=== PATIENT | female | born 1935 | race American Indian/Alaskan Native ===

== ENCOUNTER 2018-07-10 07:43 | Inpatient (IN) | payer MEDICARE ==
[2018-07-10 07:56] VITALS: BMI 27.4
[2018-07-10 08:25] LABS: BASO # 0.1 K/uL (0.0-0.2); BASO % 1.3 % (0.0-2.0); EOS # 0.1 K/uL (0.0-0.7); EOS % 2.5 % (0.0-4.0); LYMPH # 1.4 K/uL (1.0-4.3); LYMPH % 35.6 % (20.0-40.0); MEAN CORPUSCULAR HGB CONC 34.6 g/dL (33.0-37.0); MONO # 0.5 K/uL (0.0-0.8); MONO % 11.4 % (0.0-10.0); NEUT % 49.2 % (50.0-75.0); NRBC % 0.1 % (0.0-2.0); RBC 3.87 Mil/uL (3.80-5.20); RED CELL DISTRIBUTION WIDTH 14.3 % (11.5-14.5)
[2018-07-10 08:36] LABS: ALB/GLOB RATIO 1.4 (1.0-2.1); ALT/SGPT 32 U/L (9-52); AST/SGOT 40 U/L (14-36); BLOOD UREA NITROGEN 21 mg/dL (7-17); CALCIUM 9.4 mg/dl (8.6-10.4); GFR NON-AFRICAN AMERICAN 36
[2018-07-10 08:38] LABS: INR 1.1; PARTIAL THROMBOPLASTIN TIME 45.1 SECONDS (21-34); PROTHROMBIN TIME 12.4 SECONDS (9.7-12.2)
[2018-07-10 08:39] LABS: MEAN CELL VOLUME 89.6 fL (81.0-99.0)
[2018-07-10 09:09] LABS: B-TYPE NATRIURETIC PEPTIDE 7130 pg/mL (0-900); CK-MB 1.22 ng/mL (0.0-3.38)
--- NOTE | 2018-07-10 10:13 | RAD ---
HISTORY: SOB COMPARISON: Chest x-ray performed 10/30/15 TECHNIQUE: Chest, one view. FINDINGS: Examination limited by habitus and hypoinflation. LUNGS: Central vascular prominence. Mild venous congestion. Discoid atelectasis, left mid lung zone. Right infrahilar atelectasis or pneumonia. Please note that chest x-ray has limited sensitivity for the detection of pulmonary masses. PLEURA: No significant pleural effusion identified. No definite pneumothorax . CARDIOVASCULAR: Borderline cardiomegaly. Atherosclerotic calcifications of the aorta. OSSEOUS STRUCTURES: Degenerative changes. Acromioclavicular arthropathy. VISUALIZED UPPER ABDOMEN: Elevation of the right hemidiaphragm. OTHER FINDINGS: None. IMPRESSION: Central vascular prominence. Mild venous congestion. Discoid atelectasis, left mid lung zone. Right infrahilar atelectasis or pneumonia. Borderline cardiomegaly. Atherosclerotic calcifications of the aorta. Elevation of the right hemidiaphragm.
--- NOTE | 2018-07-10 10:43 | C.PDOC ---
History Of Present Illness 82 y/o female presents to ED complaining of SOB intermittently for the past 2 months, worse since this morning when she woke up. States SOB is associated with occasional left-sided and LUQ pain. She denies fever, cough, or palpitations. Patient has history of hypertension, CHF, and asthma. Time Seen by Provider: 07/10/18 07:45 Chief Complaint (Nursing): Shortness Of Breath History Per: Patient History/Exam Limitations: no limitations Onset/Duration Of Symptoms: Days Current Symptoms Are (Timing): Still Present Past Medical History Reviewed: Historical Data, Nursing Documentation, Vital Signs Vital Signs: Last Vital Signs Temp 97.5 F L 07/10/18 07:55 Pulse 73 07/10/18 09:51 Resp 15 07/10/18 09:51 BP 155/80 H 07/10/18 09:51 Pulse Ox 99 07/10/18 09:51 Primary Care Provider: Juan Roberson - Medical History PMH: CAD, CHF, Gastritis, HTN, Hypothyroidism Denies: Chronic Kidney Disease Surgical History: Coronary Stent - [facility] Procedures EXCISION OF STOMACH, ENDO, DIAGN (10/30/15) OTHER ENDOSCOPY OF SM INTEST (10/06/12) PACKED CELL TRANSFUSION (10/06/12) TRANSFUSE NONAUT RED BLOOD CELLS IN PERIPH VEIN, PERC (10/30/15) Family History: States: No Known Family Hx - Social History Hx Tobacco Use: No Hx Alcohol Use: No Hx Substance Use: No - Immunization History Hx Tetanus Toxoid Vaccination: (unk) Hx Influenza Vaccination: Yes Hx Pneumococcal Vaccination: Yes Review Of Systems Constitutional: Negative for: Fever, Chills Cardiovascular: Positive for: Chest Pain (left-sided). Negative for: Palpitations Respiratory: Positive for: Shortness of Breath. Negative for: Cough Gastrointestinal: Negative for: Nausea, Vomiting, Diarrhea Genitourinary: Negative for: Dysuria, Hematuria Musculoskeletal: Negative for: Back Pain Physical Exam - Physical Exam Appears: Non-toxic, No Acute Distress Skin: Warm, Dry Head: Normacephalic Eye(s): bilateral: Normal Inspection Oral Mucosa: Moist Neck: Supple Cardiovascular: Rhythm Regular, Murmur (loud systolic murmur 5/6) Respiratory: No Accessory Muscle Use, Rales (bases bilaterally), No Rhonchi, No Wheezing Gastrointestinal/Abdominal: Soft, No Tenderness Extremity: No Tenderness, No Deformity, Other (trace pitting edema of lower extremities) Extremity: Bilateral: Normal ROM Neurological/Psych: Oriented x3, Normal Speech ED Course And Treatment - Laboratory Results Result Diagrams: 07/10/18 08:21 07/10/18 08:21 Lab Results: PT 12.4 SECONDS (9.7-12.2) H 07/10/18 08:21 INR 1.1 07/10/18 08:21 APTT 45.1 SECONDS (21-34) H 07/10/18 08:21 Troponin I < 0.0120 ng/mL (0.00-0.120) 07/10/18 08:21 NT-Pro-B Natriuret Pep 7130 pg/mL (0-900) H 07/10/18 08:21 Total Bilirubin 0.7 mg/dL (0.2-1.3) 07/10/18 08:21 AST 40 U/L (14-36) H 07/10/18 08:21 ALT 32 U/L (9-52) 07/10/18 08:21 Alkaline Phosphatase 57 U/L (38-126) 07/10/18 08:21 Total Protein 6.9 g/dL (6.3-8.3) 07/10/18 08:21 Albumin 4.0 g/dL (3.5-5.0) 07/10/18 08:21 Globulin 2.8 gm/dL (2.2-3.9) 07/10/18 08:21 Albumin/Globulin Ratio 1.4 (1.0-2.1) 07/10/18 08:21 O2 Sat by Pulse Oximetry: 99 (RA) Pulse Ox Interpretation: Normal - Other Rad CXR X-Ray: Read By Radiologist Interpretation: FINDINGS: Examination limited by habitus and hypoinflation. LUNGS: Central vascular prominence. Mild venous congestion. Discoid atelectasis, left mid lung zone. Right infrahilar atelectasis or pneumonia. Please note that chest x-ray has limited sensitivity for the detection of pulmonary masses. PLEURA: No significant pleural effusion identified. No definite pneumothorax . CARDIOVASCULAR: Borderline cardiomegaly. Atherosclerotic calcifications of the aorta. OSSEOUS STRUCTURES: Degenerative changes. Acromioclavicular arthropathy. VISUALIZED UPPER ABDOMEN: Elevation of the right hemidiaphragm. OTHER FINDINGS: None. IMPRESSION: Central vascular prominence. Mild venous congestion. Discoid atelectasis, left mid lung zone. Right infrahilar atelectasis or pneumonia. Borderline cardiomegaly. Atherosclerotic calcifications of the aorta. Elevation of the right hemidiaphragm. Progress Note: EKG, labs, and chest XR ordered. Patient given lasix. Disposition - Disposition Forms: [facility] (Kinyarwanda) - Scribe Statement The provider has reviewed the documentation as recorded by the Connor Carter Provider Attestation: All medical record entries made by the Yusefibdada were at my direction and personally dictated by me. I have reviewed the chart and agree that the record accurately reflects my personal performance of the history, physical exam, medical decision making, and the department course for this patient. I have also personally directed, reviewed, and agree with the discharge instructions and disposition.
[2018-07-10] MEDS ORDERED: Vancomycin 1 GM 1 GM/250 ML BAG IV STA (11:17)
[2018-07-10] MEDS ORDERED: Piperacillin/Tazobact 3.375 gm 100 ML IV STA (11:17)
[2018-07-10] MEDS ORDERED: Piperacillin/Tazobact 3.375 gm 100 ML IVPB ONE (11:56)
[2018-07-10] MEDS ORDERED: Albuterol 0.083% Inhal Sol (2.5 mg/3 mL) UD IH PRN (15:16)
--- NOTE | 2018-07-10 15:22 | CP.PCM.HP ---
Past Patient History - Past Medical History & Family History Past Medical History?: Yes - Past Social History Smoking Status: Never Smoked - CARDIAC Hx Congestive Heart Failure: Yes Hx Hypertension: Yes - PULMONARY Hx Respiratory Disorders: No - NEUROLOGICAL Hx Neurological Disorder: No - HEENT Hx HEENT Problems: No - RENAL Hx Chronic Kidney Disease: No - ENDOCRINE/METABOLIC Hx Hypothyroidism: Yes - HEMATOLOGICAL/ONCOLOGICAL Hx Blood Disorders: Yes Hx Blood Transfusions: Yes Other/Comment: Hepatitis (type unknown) - INTEGUMENTARY Hx Dermatological Problems: No - MUSCULOSKELETAL/RHEUMATOLOGICAL Hx Musculoskeletal Disorders: No Hx Falls: No - GASTROINTESTINAL Hx Gastritis: Yes - GENITOURINARY/GYNECOLOGICAL Hx Genitourinary Disorders: No - PSYCHIATRIC Hx Substance Use: No - SURGICAL HISTORY Hx Coronary Stent: Yes - ANESTHESIA Hx Anesthesia: Yes Hx Anesthesia Reactions: No Hx Malignant Hyperthermia: No Meds Allergies/Adverse Reactions: Allergies Allergy/AdvReac Type Severity Reaction Status Date / Time No Known Allergies Allergy Verified 07/10/18 07:50 Results - Vital Signs Recent Vital Signs: Last Vital Signs Temp 98.1 F 07/10/18 11:56 Pulse 67 07/10/18 11:56 Resp 13 07/10/18 11:56 BP 159/85 H 07/10/18 11:56 Pulse Ox 100 07/10/18 11:56 - Labs Result Diagrams: 07/10/18 08:21 07/10/18 08:21 Labs: Laboratory Results - last 24 hr 07/10/18 07/10/18 07/10/18 08:21 08:21 08:21 WBC 4.0 L RBC 3.87 Hgb 12.0 Hct 34.7 MCV 89.6 D MCH 31.0 MCHC 34.6 RDW 14.3 Plt Count 152 MPV 9.0 Neut % (Auto) 49.2 L Lymph % (Auto) 35.6 [place] % (Auto) 11.4 H Eos % (Auto) 2.5 Baso % (Auto) 1.3 Neut # (Auto) 2.0 Lymph # (Auto) 1.4 [place] # (Auto) 0.5 Eos # (Auto) 0.1 Baso # (Auto) 0.1 PT 12.4 H INR 1.1 APTT 45.1 H Sodium 139 Potassium 3.8 Chloride 97 L Carbon Dioxide 35 H Anion Gap 12 BUN 21 H Creatinine 1.4 H Est GFR ( Amer) 43 Est GFR (Non-Af Amer) 36 Random Glucose 112 H Calcium 9.4 Total Bilirubin 0.7 AST 40 H ALT 32 Alkaline Phosphatase 57 Total Creatine Kinase 65 CK-MB (Mass) 1.22 Troponin I < 0.0120 NT-Pro-B Natriuret Pep 7130 H Total Protein 6.9 Albumin 4.0 Globulin 2.8 Albumin/Globulin Ratio 1.4
[2018-07-11] MEDS: Levothyroxine 112 MCG TAB PO SCH (06:43)
[2018-07-11] MEDS: Potassium Chloride 10 mEq ER Tab PO SCH (09:11)
[2018-07-11] MEDS ORDERED: Pantoprazole 40 mg EC Tab PO SCH (10:00)
[2018-07-11 13:37] LABS: SQUAMOUS EPITHIAL 1 /hpf (0-5); URINE BILIRUBIN NEGATIVE (NEGATIVE); URINE BLOOD NEGATIVE (NEGATIVE); URINE CLARITY Clear (Clear); URINE COLOR Straw (YELLOW); URINE GLUCOSE (UA) NORMAL (Normal); URINE LEUKOCYTE ESTERASE 1+ Leu/uL (Negative); URINE PROTEIN NEGATIVE (NEGATIVE); URINE UROBILINOGEN NORMAL mg/dL (0.2-1.0)
--- NOTE | 2018-07-11 15:22 | CP.PCM.PN ---
Objective - Vital Signs/Intake and Output Vital Signs (last 24 hours): Temp Pulse Resp BP Pulse Ox 98.6 F 65 20 136/73 96 07/11/18 07:00 07/11/18 08:11 07/11/18 07:00 07/11/18 09:12 07/11/18 07:00 - Medications Medications: Current Medications Albuterol Sulfate (Albuterol 0.083% Inhal Freda (2.5 Mg/3 Ml) Ud) 50 mg IH Q6H PRN PRN Reason: Wheezing Amlodipine Besylate (Norvasc) 10 mg PO DAILY [facility] Last Admin: 07/11/18 09:12 Dose: 10 mg Aspirin (Aspirin Chewable) 81 mg PO DAILY [facility] Last Admin: 07/11/18 09:12 Dose: 81 mg Carvedilol (Coreg) 6.25 mg PO DAILY [facility] Last Admin: 07/11/18 09:11 Dose: 6.25 mg Clopidogrel Bisulfate (Plavix) 75 mg PO DAILY [facility] Last Admin: 07/11/18 09:12 Dose: 75 mg Famotidine (Pepcid) 20 mg PO DAILY [facility] Last Admin: 07/11/18 09:12 Dose: 20 mg Fenofibrate (Tricor) 48 mg PO DAILY [facility] Last Admin: 07/11/18 09:12 Dose: 48 mg Furosemide (Lasix) 40 mg IVP Q12 [facility] Last Admin: 07/11/18 09:12 Dose: 40 mg Heparin Sodium (Porcine) (Heparin) 5,000 units SC Q8 [facility] Last Admin: 07/11/18 14:40 Dose: 5,000 units Levothyroxine Sodium (Synthroid) 112 mcg PO 0630 [facility] Last Admin: 07/11/18 06:43 Dose: 112 mcg Lisinopril (Zestril) 5 mg PO DAILY [facility] Last Admin: 07/11/18 09:12 Dose: 5 mg Potassium Chloride (Klor-Con 10) 10 meq PO DAILY [facility] Last Admin: 07/11/18 09:11 Dose: 10 meq - Labs Labs: 07/10/18 08:21 07/10/18 08:21 PT 12.4 SECONDS (9.7-12.2) H 07/10/18 08:21 INR 1.1 07/10/18 08:21 APTT 45.1 SECONDS (21-34) H 07/10/18 08:21
--- NOTE | 2018-07-11 16:05 | CP.PCM.CON ---
History of Present Illness - History of Present Illness History of Present Illness: Nephrology Consultation Note: Assessment: Stable Acute Kidney Injury (N17.9) versus underlying CKD 3 CHF exacerbation metabolic alkalosis ? due to chronic diuretics CAD hyperlipidmeia hypothyroidism s/p thyroidectomy Plan No acute need for renal replacement therapy at this time. Hypertension control with meds as ordered. Maintain hemodynamics stable. Avoid hypotension. continue with dagmar inh Monitor Input/Output, daily weights and renal function with basic metabolic panel on diuretics for chf. supplement lytes as needed Check urine analysis, spot protein/creatinine, albumin/creatinine ratio, renal sonogram Dose meds/antibiotics for reduced GFR. Avoid fleets enema/magnesium based laxatives. Avoid nephrotoxins/NSAIDs/ iodinated contrast (unless needed emergently) Glycemic control Further work up/management as per primary team Thanks for allowing me to participate in care of your patient. Dr Olinda Duff will follow patient with you from tomorrow. Please call if any Qs Dr Sachin Perez Office: [phone] Chief Complaint; SOB but better Reason for consult: Acute Kidney Injury HPI: Pt is a 82 F with hx of hypertension (years) CHF CAD hyperlipidmeia hypothyroidism s/p thyroidectomy for cancer in 1970s presented with complaints of SOB and CHF exacerbation and found to have ELZA hence renal consulted Denies OTC/herbal meds or NSAIDs No recent iodinated contrast exposure. No obvious episodes of low BP she feels better now ROS: leg swelling better Cardiovascular: No chest pain. Pulmonary: No shortness of breath at present Gastrointestinal: denies abdominal pain No nausea. No vomiting. Genitourinary: No pain while urinating. Denies blood in urine. All other negative except as mentioned in HPI. Physical Examination: General Appearance: Comfortable, in no acute respiratory distress, co-operative . Vitals reviewed and noted as below Head; Atraumatic, normocephalic ENT: no ulcers no thrush. Tongue is midline. Oropharynx: no rash or ulcers. EYES: Pupils are equal, round and reactive to light accommodation. Eye muscles and extraocular movement intact. Sclera is anicteric. Neck; supple no lymphadenopathy, no thyromegaly or bruit Lungs: Normal respiratory rate/effort. Breath sounds bilateral equal and occasional basal crackles Heart: Normal rate. s1s2 normal. No rub or gallop. Extremities: no edema. No varicose veins Neurological: Patient is alert, awake and oriented. No focal deficit. Strength bilateral appropriate and equal Skin: Warm and dry. Normal turgor. No rash. Palpitation: Normal elasticity for age Abdomen: Abdomen is soft. Bowel sounds +. There is no abdominal tenderness, no guarding/rigidity no organomegaly Psych: normal insight and normal affect/mood MSK: no joint tenderness or swelling. Digits and nails normal, no deformity : kidney or bladder not palpable Labs/imaging reviewed. Past medical history, past surgical history, family history, social history, allergy reviewed and noted as below Family hx: no hx of CKD. Rest non-contributory Past Patient History - Past Medical History & Family History Past Medical History?: Yes - Past Social History Smoking Status: Never Smoked - CARDIAC Hx Congestive Heart Failure: Yes Hx Hypertension: Yes - PULMONARY Hx Respiratory Disorders: No - NEUROLOGICAL Hx Neurological Disorder: No - HEENT Hx HEENT Problems: No - RENAL Hx Chronic Kidney Disease: No - ENDOCRINE/METABOLIC Hx Hypothyroidism: Yes - HEMATOLOGICAL/ONCOLOGICAL Hx Blood Disorders: Yes Hx Blood Transfusions: Yes Other/Comment: Hepatitis (type unknown) - INTEGUMENTARY Hx Dermatological Problems: No - MUSCULOSKELETAL/RHEUMATOLOGICAL Hx Musculoskeletal Disorders: No Hx Falls: No - GASTROINTESTINAL Hx Gastritis: Yes - GENITOURINARY/GYNECOLOGICAL Hx Genitourinary Disorders: No - PSYCHIATRIC Hx Substance Use: No - SURGICAL HISTORY Hx Coronary Stent: Yes - ANESTHESIA Hx Anesthesia: Yes Hx Anesthesia Reactions: No Hx Malignant Hyperthermia: No Meds Allergies/Adverse Reactions: Allergies Allergy/AdvReac Type Severity Reaction Status Date / Time No Known Allergies Allergy Verified 07/10/18 07:50 - Medications Medications: Current Medications Albuterol Sulfate (Albuterol 0.083% Inhal Freda (2.5 Mg/3 Ml) Ud) 50 mg IH Q6H PRN PRN Reason: Wheezing Amlodipine Besylate (Norvasc) 10 mg PO DAILY [facility] Last Admin: 07/11/18 09:12 Dose: 10 mg Aspirin (Aspirin Chewable) 81 mg PO DAILY [facility] Last Admin: 07/11/18 09:12 Dose: 81 mg Carvedilol (Coreg) 6.25 mg PO DAILY [facility] Last Admin: 07/11/18 09:11 Dose: 6.25 mg Clopidogrel Bisulfate (Plavix) 75 mg PO DAILY [facility] Last Admin: 07/11/18 09:12 Dose: 75 mg Famotidine (Pepcid) 20 mg PO DAILY [facility] Last Admin: 07/11/18 09:12 Dose: 20 mg Fenofibrate (Tricor) 48 mg PO DAILY [facility] Last Admin: 07/11/18 09:12 Dose: 48 mg Furosemide (Lasix) 40 mg IVP Q12 [facility] Last Admin: 07/11/18 09:12 Dose: 40 mg Heparin Sodium (Porcine) (Heparin) 5,000 units SC Q8 [facility] Last Admin: 07/11/18 14:40 Dose: 5,000 units Levothyroxine Sodium (Synthroid) 112 mcg PO 0630 [facility] Last Admin: 07/11/18 06:43 Dose: 112 mcg Lisinopril (Zestril) 5 mg PO DAILY [facility] Last Admin: 07/11/18 09:12 Dose: 5 mg Potassium Chloride (Klor-Con 10) 10 meq PO DAILY [facility] Last Admin: 07/11/18 09:11 Dose: 10 meq Results - Vital Signs Recent Vital Signs: Last Vital Signs Temp 98.6 F 07/11/18 07:00 Pulse 65 07/11/18 08:11 Resp 20 07/11/18 07:00 BP 136/73 07/11/18 09:12 Pulse Ox 96 07/11/18 07:00 - Labs Result Diagrams: 07/10/18 08:21 07/10/18 08:21 Labs: Laboratory Results - last 24 hr 07/11/18 07/11/18 13:20 13:27 Urine Color Straw Urine Clarity Clear Urine pH 7.0 Ur Specific [place] 1.006 Urine Protein Negative Urine Glucose (UA) Normal Urine Ketones Negative Urine Blood Negative Urine Nitrate Negative Urine Bilirubin Negative Urine Urobilinogen Normal Ur Leukocyte Esterase 1+ H Urine WBC (Auto) 3 Urine RBC (Auto) < 1 Ur Squamous Epith Cells 1 U Random Total Protein 12.0
--- NOTE | 2018-07-11 16:57 | US ---
Date of service: 07/11/2018 PROCEDURE: Ultrasound of the Kidneys HISTORY: ELZA COMPARISON: None available. TECHNIQUE: Sonogram of the kidneys. FINDINGS: RIGHT KIDNEY: Measures: 10.2 x 4.7 x 5.3 cm. No obstructing calculus or hydronephrosis identified. 4.6 x 3.2 x 4.3 cm and 3.2 x 5.6 x 3.3 cm cyst. LEFT KIDNEY: Measures: 9.4 x 4.8 x 4.5 cm. No obstructing calculus or hydronephrosis identified. 2.1 x 2.1 x 1.6 cm cyst. OTHER FINDINGS: None. IMPRESSION: Bilateral large renal cysts as above.
[2018-07-12] MEDS: Levothyroxine 112 MCG TAB PO SCH (05:54)
[2018-07-12 07:29] LABS: HEMOGLOBIN 12.9 g/dL (11.0-16.0); MEAN CELL VOLUME 89.1 fL (81.0-99.0); MEAN CORPUSCULAR HEMOGLOBIN 30.1 pg (27.0-31.0); MEAN CORPUSCULAR HGB CONC 33.8 g/dL (33.0-37.0); MEAN PLATELET VOLUME 9.1 fL (7.2-11.7); RBC 4.28 Mil/uL (3.80-5.20); RED CELL DISTRIBUTION WIDTH 14.3 % (11.5-14.5); WHITE BLOOD COUNT 4.3 K/uL (4.8-10.8)
[2018-07-12 07:38] VITALS: RESP 20
[2018-07-12 07:43] LABS: BLOOD UREA NITROGEN 22 mg/dL (7-17); CALCIUM 8.3 mg/dl (8.6-10.4); GFR NON-AFRICAN AMERICAN 53
[2018-07-12] MEDS: Potassium Chloride 10 mEq ER Tab PO SCH (09:44)
--- NOTE | 2018-07-12 14:15 | CP.PCM.PN ---
Subjective - Date & Time of Evaluation Date of Evaluation: 07/12/18 Time of Evaluation: 14:14 - Subjective Subjective: Nephrology Consultation Note: Assessment: Stable Acute Kidney Injury (N17.9) improved CHF exacerbation metabolic alkalosis ? due to chronic diuretics CAD hyperlipidmeia hypothyroidism s/p thyroidectomy renal cyst Plan No acute need for renal replacement therapy at this time. Hypertension control with meds as ordered. Maintain hemodynamics stable. Avoid hypotension. continue with dagmar inh Monitor Input/Output, daily weights and renal function with basic metabolic panel on diuretics for chf. consider switch to oral supplement lytes as needed Check urine analysis, spot protein/creatinine, albumin/creatinine ratio, renal sonogram Dose meds/antibiotics for improved GFR. Glycemic control Further work up/management as per primary team Thanks for allowing me to participate in care of your patient. will follow patient with you. Please call if any Qs. had d/w team Dr Sachin Perez Office: [phone] Chief Complaint; SOB but better Reason for consult: Acute Kidney Injury HPI: Pt is a 82 F with hx of hypertension (years) CHF CAD hyperlipidmeia hypothyroidism s/p thyroidectomy for cancer in 1970s presented with complaints of SOB and CHF exacerbation and found to have ELZA hence renal consulted Denies OTC/herbal meds or NSAIDs No recent iodinated contrast exposure. No obvious episodes of low BP she feels better now ROS: leg swelling better Cardiovascular: No chest pain. Pulmonary: No shortness of breath at present Gastrointestinal: denies abdominal pain No nausea. No vomiting. Genitourinary: No pain while urinating. Denies blood in urine. All other negative except as mentioned in HPI. Physical Examination: General Appearance: Comfortable, in no acute respiratory distress, co-operative . Vitals reviewed and noted as below Head; Atraumatic, normocephalic ENT: no ulcers no thrush. Tongue is midline. Oropharynx: no rash or ulcers. EYES: Pupils are equal, round and reactive to light accommodation. Eye muscles and extraocular movement intact. Sclera is anicteric. Neck; supple no lymphadenopathy, no thyromegaly or bruit Lungs: Normal respiratory rate/effort. Breath sounds bilateral equal and clearer Heart: Normal rate. s1s2 normal. No rub or gallop. Extremities: no edema. No varicose veins Neurological: Patient is alert, awake and oriented. No focal deficit. Strength bilateral appropriate and equal Skin: Warm and dry. Normal turgor. No rash. Palpitation: Normal elasticity for age Abdomen: Abdomen is soft. Bowel sounds +. There is no abdominal tenderness, no guarding/rigidity no organomegaly Psych: normal insight and normal affect/mood MSK: no joint tenderness or swelling. Digits and nails normal, no deformity : kidney or bladder not palpable Labs/imaging reviewed. Past medical history, past surgical history, family history, social history, allergy reviewed and noted as below Family hx: no hx of CKD. Rest non-contributory Objective - Vital Signs/Intake and Output Vital Signs (last 24 hours): Temp Pulse Resp BP Pulse Ox 98.2 F 72 20 114/63 97 07/12/18 07:10 07/12/18 12:03 07/12/18 07:10 07/12/18 09:44 07/12/18 07:10 Intake and Output: 07/12/18 07/12/18 06:59 18:59 Intake Total 120 Output Total 1000 Balance -880 - Medications Medications: Current Medications Albuterol Sulfate (Albuterol 0.083% Inhal Freda (2.5 Mg/3 Ml) Ud) 50 mg IH Q6H PRN PRN Reason: Wheezing Amlodipine Besylate (Norvasc) 10 mg PO DAILY [facility] Last Admin: 07/12/18 09:44 Dose: 10 mg Aspirin (Aspirin Chewable) 81 mg PO DAILY [facility] Last Admin: 07/12/18 09:44 Dose: 81 mg Carvedilol (Coreg) 6.25 mg PO DAILY [facility] Last Admin: 07/12/18 09:44 Dose: 6.25 mg Clopidogrel Bisulfate (Plavix) 75 mg PO DAILY [facility] Last Admin: 07/12/18 09:44 Dose: 75 mg Famotidine (Pepcid) 20 mg PO DAILY [facility] Last Admin: 07/12/18 09:44 Dose: 20 mg Fenofibrate (Tricor) 48 mg PO DAILY [facility] Last Admin: 07/12/18 09:43 Dose: 48 mg Furosemide (Lasix) 40 mg IVP Q12 [facility] Last Admin: 07/12/18 09:44 Dose: 40 mg Heparin Sodium (Porcine) (Heparin) 5,000 units SC Q8 [facility] Last Admin: 07/12/18 13:57 Dose: 5,000 units Potassium Chloride (Potassium Chloride 20 Meq/100 Ml) 20 meq in 100 mls @ 50 mls/hr IVPB Q2 [facility] Stop: 07/12/18 15:59 Last Admin: 07/12/18 12:45 Dose: 50 mls/hr Levothyroxine Sodium (Synthroid) 112 mcg PO 0630 [facility] Last Admin: 07/12/18 05:54 Dose: 112 mcg Lisinopril (Zestril) 5 mg PO DAILY [facility] Last Admin: 07/12/18 09:43 Dose: 5 mg Potassium Chloride (Klor-Con 10) 10 meq PO DAILY [facility] Last Admin: 07/12/18 09:44 Dose: 10 meq - Labs Labs: 07/12/18 07:23 07/12/18 07:23 PT 12.4 SECONDS (9.7-12.2) H 07/10/18 08:21 INR 1.1 07/10/18 08:21 APTT 45.1 SECONDS (21-34) H 07/10/18 08:21
--- NOTE | 2018-07-12 14:53 | CARD ---
APPROVED REPORT Date of service: 07/12/2018 EXAM: Two-dimensional and M-mode echocardiogram with Doppler and color Doppler. Other Information Quality : GoodRhythm : INDICATION Dyspnea 2D DIMENSIONS IVSd1.0 (0.7-1.1cm)LVDd6.1 (3.9-5.9cm) PWd0.8 (0.7-1.1cm)LA Prkdeq799 (18-58mL) LVDs4.5 (2.5-4.0cm)FS (%) 26.1 % LVEF (%)50.3 (>50%)LVEF (Quiroz's)54.16 % IVC0.00 cm M-Mode DIMENSIONS RVDd1.85 (2.1-3.2cm)Left Atrium (MM)4.91 (2.5-4.0cm) IVSd1.01 (0.7-1.1cm)Aortic Root3.15 (2.2-3.7cm) LVDd5.43 (4.0-5.6cm)Aortic Cusp Exc.1.95 (1.5-2.0cm) PWd0.94 (0.7-1.1cm)FS (%) 23 % LVDs4.20 (2.0-3.8cm)LVEF (%)45 (>50%) Aortic Valve AI P 1/2 [id number] Mitral Valve MV E Kkadfzua88.2cm/sMV A Gegkdmle47.0cm/sE/A ratio1.0 MXLE222.71 cm/s TDI Lateral E' Peak V6.80cm/sMedial E' Peak V3.58cm/sE/Lateral E'11.9 E/Medial E'22.7 Tricuspid Valve TR Peak Eyeqmqel193jz/sTR Peak Gr.[id number] LEFT VENTRICLE The Left Ventricle is moderately dilated. There is normal left ventricular wall thickness. The Ejection Fraction is 45-50%. The left atrial pressure is mildly elevated. Transmitral Doppler flow pattern is Grade II-pseudonormal filling dynamics. markedly increased la volume index of 95 mm/m2. RIGHT VENTRICLE The right ventricle is normal size. The right ventricular systolic function is normal. ATRIA The left atrium is severely dilated. The right atrium size is normal. The interatrial septum is intact with no evidence for an atrial septal defect.buldging of atrial septum to rt suggestive of increased la pressures. AORTIC VALVE The aortic valve is moderately sclerotic. The aortic valve is trileaflet. There is mild aortic regurgitation. MITRAL VALVE The mitral valve is thickened but opens well. Mitral annular calcification is moderate. Mitral regurgitation is moderate to severe. TRICUSPID VALVE The tricuspid valve is normal in structure. There is moderate tricuspid regurgitation. Right ventricular systolic pressure is estimated at 50 mmHg. There is moderate pulmonary hypertension. PULMONIC VALVE The pulmonary valve is normal in structure. There is trace pulmonic valvular regurgitation. GREAT VESSELS The aortic root is normal in size. The IVC is normal in size and collapses >50% with inspiration. PERICARDIAL EFFUSION There is no pericardial effusion. <Conclusion> The Left Ventricle is moderately dilated. The Ejection Fraction is 45-50%. The left atrial pressure is mildly elevated. Transmitral Doppler flow pattern is Grade II-pseudonormal filling dynamics. markedly increased la volume index of 95 mm/m2. The left atrium is severely dilated. The interatrial septum is intact with no evidence for an atrial septal defect.buldging of atrial septum to rt suggestive of increased la pressures. There is mild aortic regurgitation. Mitral regurgitation is moderate to severe. There is moderate tricuspid regurgitation. Right ventricular systolic pressure is estimated at 50 mmHg. There is moderate pulmonary hypertension. The aortic root is normal in size. The IVC is normal in size and collapses >50% with inspiration. There is no pericardial effusion.
--- NOTE | 2018-07-12 19:08 | CP.PCM.PN ---
Subjective - Date & Time of Evaluation Date of Evaluation: 07/12/18 Time of Evaluation: 19:08 Objective - Vital Signs/Intake and Output Vital Signs (last 24 hours): Temp Pulse Resp BP Pulse Ox 97.7 F 76 20 127/81 95 07/12/18 16:51 07/12/18 16:51 07/12/18 16:51 07/12/18 16:51 07/12/18 16:51 - Medications Medications: Current Medications Albuterol Sulfate (Albuterol 0.083% Inhal Freda (2.5 Mg/3 Ml) Ud) 50 mg IH Q6H PRN PRN Reason: Wheezing Amlodipine Besylate (Norvasc) 10 mg PO DAILY [facility] Last Admin: 07/12/18 09:44 Dose: 10 mg Aspirin (Aspirin Chewable) 81 mg PO DAILY [facility] Last Admin: 07/12/18 09:44 Dose: 81 mg Carvedilol (Coreg) 6.25 mg PO DAILY [facility] Last Admin: 07/12/18 09:44 Dose: 6.25 mg Clopidogrel Bisulfate (Plavix) 75 mg PO DAILY [facility] Last Admin: 07/12/18 09:44 Dose: 75 mg Famotidine (Pepcid) 20 mg PO DAILY [facility] Last Admin: 07/12/18 09:44 Dose: 20 mg Fenofibrate (Tricor) 48 mg PO DAILY [facility] Last Admin: 07/12/18 09:43 Dose: 48 mg Furosemide (Lasix) 40 mg IVP Q12 [facility] Last Admin: 07/12/18 09:44 Dose: 40 mg Heparin Sodium (Porcine) (Heparin) 5,000 units SC Q8 [facility] Last Admin: 07/12/18 13:57 Dose: 5,000 units Levothyroxine Sodium (Synthroid) 112 mcg PO 0630 [facility] Last Admin: 07/12/18 05:54 Dose: 112 mcg Lisinopril (Zestril) 5 mg PO DAILY [facility] Last Admin: 07/12/18 09:43 Dose: 5 mg Potassium Chloride (Klor-Con 10) 10 meq PO DAILY [facility] Last Admin: 07/12/18 09:44 Dose: 10 meq - Labs Labs: 07/12/18 07:23 07/12/18 07:23 PT 12.4 SECONDS (9.7-12.2) H 07/10/18 08:21 INR 1.1 07/10/18 08:21 APTT 45.1 SECONDS (21-34) H 07/10/18 08:21
--- NOTE | 2018-07-13 00:16 | CP.PCM.CON ---
History of Present Illness - History of Present Illness History of Present Illness: Patient seen and evaluated Admitted for dyspnea and anemia Past Patient History - Past Medical History & Family History Past Medical History?: Yes - Past Social History Smoking Status: Never Smoked - CARDIAC Hx Congestive Heart Failure: Yes Hx Hypertension: Yes - PULMONARY Hx Respiratory Disorders: No - NEUROLOGICAL Hx Neurological Disorder: No - HEENT Hx HEENT Problems: No - RENAL Hx Chronic Kidney Disease: No - ENDOCRINE/METABOLIC Hx Hypothyroidism: Yes - HEMATOLOGICAL/ONCOLOGICAL Hx Blood Disorders: Yes Hx Blood Transfusions: Yes Other/Comment: Hepatitis (type unknown) - INTEGUMENTARY Hx Dermatological Problems: No - MUSCULOSKELETAL/RHEUMATOLOGICAL Hx Musculoskeletal Disorders: No Hx Falls: No - GASTROINTESTINAL Hx Gastritis: Yes - GENITOURINARY/GYNECOLOGICAL Hx Genitourinary Disorders: No - PSYCHIATRIC Hx Substance Use: No - SURGICAL HISTORY Hx Coronary Stent: Yes - ANESTHESIA Hx Anesthesia: Yes Hx Anesthesia Reactions: No Hx Malignant Hyperthermia: No Has any member of the family had a problem w/ anesthesia?: No Meds Allergies/Adverse Reactions: Allergies Allergy/AdvReac Type Severity Reaction Status Date / Time No Known Allergies Allergy Verified 07/10/18 07:50 - Medications Medications: Current Medications Albuterol Sulfate (Albuterol 0.083% Inhal Freda (2.5 Mg/3 Ml) Ud) 50 mg IH Q6H PRN PRN Reason: Wheezing Amlodipine Besylate (Norvasc) 10 mg PO DAILY [facility] Last Admin: 07/12/18 09:44 Dose: 10 mg Aspirin (Aspirin Chewable) 81 mg PO DAILY [facility] Last Admin: 07/12/18 09:44 Dose: 81 mg Carvedilol (Coreg) 6.25 mg PO DAILY [facility] Last Admin: 07/12/18 09:44 Dose: 6.25 mg Clopidogrel Bisulfate (Plavix) 75 mg PO DAILY [facility] Last Admin: 07/12/18 09:44 Dose: 75 mg Famotidine (Pepcid) 20 mg PO DAILY [facility] Last Admin: 07/12/18 09:44 Dose: 20 mg Fenofibrate (Tricor) 48 mg PO DAILY [facility] Last Admin: 07/12/18 09:43 Dose: 48 mg Furosemide (Lasix) 40 mg IVP Q12 [facility] Last Admin: 07/12/18 21:56 Dose: 40 mg Heparin Sodium (Porcine) (Heparin) 5,000 units SC Q8 [facility] Last Admin: 07/12/18 21:56 Dose: 5,000 units Levothyroxine Sodium (Synthroid) 112 mcg PO 0630 [facility] Last Admin: 07/12/18 05:54 Dose: 112 mcg Lisinopril (Zestril) 5 mg PO DAILY [facility] Last Admin: 07/12/18 09:43 Dose: 5 mg Potassium Chloride (Klor-Con 10) 10 meq PO DAILY [facility] Last Admin: 07/12/18 09:44 Dose: 10 meq Results - Vital Signs Recent Vital Signs: Last Vital Signs Temp 97.7 F 07/12/18 16:51 Pulse 76 07/12/18 16:51 Resp 20 07/12/18 16:51 BP 135/74 07/12/18 21:56 Pulse Ox 95 07/12/18 16:51 - Labs Result Diagrams: 07/12/18 07:23 07/12/18 07:23 Labs: Laboratory Results - last 24 hr 07/12/18 07/12/18 07:23 07:23 WBC 4.3 L RBC 4.28 Hgb 12.9 Hct 38.1 MCV 89.1 MCH 30.1 MCHC 33.8 RDW 14.3 Plt Count 150 MPV 9.1 Sodium 136 Potassium 2.9 L Chloride 93 L Carbon Dioxide 33 H Anion Gap 14 BUN 22 H Creatinine 1.0 Est GFR ( Amer) > 60 Est GFR (Non-Af Amer) 53 Random Glucose 100 Calcium 8.3 L
[2018-07-13 01:21] LABS: CALCIUM 9.1 mg/dl (8.6-10.4)
[2018-07-13] MEDS: Levothyroxine 112 MCG TAB PO SCH (06:02)
[2018-07-13 08:34] VITALS: PULSE 73; TEMP 98.2; O2SAT 95
[2018-07-13] MEDS: Potassium Chloride 10 mEq ER Tab PO SCH (09:44)
[2018-07-13 09:45] VITALS: BP 125/81
--- NOTE | 2018-07-13 11:39 | CP.PCM.PN ---
Subjective - Date & Time of Evaluation Date of Evaluation: 07/13/18 Time of Evaluation: 11:37 - Subjective Subjective: Nephrology Consultation Note: Assessment: Stable Acute Kidney Injury (N17.9) improved underlying CKD 3 CHF exacerbation metabolic alkalosis ? due to chronic diuretics CAD hyperlipidmeia hypothyroidism s/p thyroidectomy renal cyst Plan No acute need for renal replacement therapy at this time. Hypertension control with meds as ordered. Maintain hemodynamics stable. Avoid hypotension. continue with dagmar inh Monitor Input/Output, daily weights and renal function with basic metabolic panel on diuretics for chf. consider switch to oral supplement lytes as needed cardiology following Check urine analysis, spot protein/creatinine, albumin/creatinine ratio, renal sonogram Dose meds/antibiotics for reduced GFR. Glycemic control Further work up/management as per primary team Thanks for allowing me to participate in care of your patient. will follow patient with you. Please call if any Qs. had d/w team Dr Sachin Perez Office: [phone] Chief Complaint; SOB but better Reason for consult: Acute Kidney Injury HPI: Pt is a 82 F with hx of hypertension (years) CHF CAD hyperlipidmeia hypothyroidism s/p thyroidectomy for cancer in 1970s presented with complaints of SOB and CHF exacerbation and found to have ELZA hence renal consulted Denies OTC/herbal meds or NSAIDs No recent iodinated contrast exposure. No obvious episodes of low BP she feels better now ROS: pt feels better. no complaints at this time Cardiovascular: No chest pain. Pulmonary: No shortness of breath at present Gastrointestinal: denies abdominal pain No nausea. No vomiting. Genitourinary: No pain while urinating. Denies blood in urine. All other negative except as mentioned in HPI. Physical Examination: General Appearance: Comfortable, in no acute respiratory distress, co-operative . Vitals reviewed and noted as below Head; Atraumatic, normocephalic ENT: no ulcers no thrush. Tongue is midline. Oropharynx: no rash or ulcers. EYES: Pupils are equal, round and reactive to light accommodation. Eye muscles and extraocular movement intact. Sclera is anicteric. Neck; supple no lymphadenopathy, no thyromegaly or bruit Lungs: Normal respiratory rate/effort. Breath sounds bilateral equal and clear Heart: Normal rate. s1s2 normal. No rub or gallop. Extremities: no edema. No varicose veins Neurological: Patient is alert, awake and oriented. No focal deficit. Strength bilateral appropriate and equal Skin: Warm and dry. Normal turgor. No rash. Palpitation: Normal elasticity for age Abdomen: Abdomen is soft. Bowel sounds +. There is no abdominal tenderness, no guarding/rigidity no organomegaly Psych: normal insight and normal affect/mood MSK: no joint tenderness or swelling. Digits and nails normal, no deformity : kidney or bladder not palpable Labs/imaging reviewed. Past medical history, past surgical history, family history, social history, allergy reviewed and noted as below Family hx: no hx of CKD. Rest non-contributory Objective - Vital Signs/Intake and Output Vital Signs (last 24 hours): Temp Pulse Resp BP Pulse Ox 98.2 F 73 20 125/81 95 07/13/18 08:32 07/13/18 08:32 07/13/18 08:32 07/13/18 09:45 07/13/18 08:32 Intake and Output: 07/13/18 07/13/18 06:59 18:59 Intake Total 120 Output Total 900 Balance -780 - Medications Medications: Current Medications Acetaminophen (Tylenol 325mg Tab) 650 mg PO Q6 PRN PRN Reason: Pain, moderate (4-7) Albuterol Sulfate (Albuterol 0.083% Inhal Freda (2.5 Mg/3 Ml) Ud) 50 mg IH Q6H PRN PRN Reason: Wheezing Amlodipine Besylate (Norvasc) 10 mg PO DAILY [facility] Last Admin: 07/13/18 09:44 Dose: 10 mg Aspirin (Aspirin Chewable) 81 mg PO DAILY [facility] Last Admin: 07/13/18 09:44 Dose: 81 mg Carvedilol (Coreg) 6.25 mg PO DAILY [facility] Last Admin: 07/13/18 09:44 Dose: 6.25 mg Clopidogrel Bisulfate (Plavix) 75 mg PO DAILY [facility] Last Admin: 07/13/18 09:44 Dose: 75 mg Famotidine (Pepcid) 20 mg PO DAILY [facility] Last Admin: 07/13/18 09:44 Dose: 20 mg Fenofibrate (Tricor) 48 mg PO DAILY [facility] Last Admin: 07/13/18 09:44 Dose: 48 mg Furosemide (Lasix) 40 mg IVP Q12 [facility] Last Admin: 05/21/19 09:45 Dose: 40 mg Heparin Sodium (Porcine) (Heparin) 5,000 units SC Q8 [facility] Last Admin: 07/13/18 06:03 Dose: 5,000 units Levothyroxine Sodium (Synthroid) 112 mcg PO 0630 [facility] Last Admin: 07/13/18 06:02 Dose: 112 mcg Lisinopril (Zestril) 5 mg PO DAILY [facility] Last Admin: 07/13/18 09:44 Dose: 5 mg Potassium Chloride (Klor-Con 10) 10 meq PO DAILY [facility] Last Admin: 07/13/18 09:44 Dose: 10 meq - Labs Labs: 07/12/18 07:23 07/12/18 23:55 PT 12.4 SECONDS (9.7-12.2) H 07/10/18 08:21 INR 1.1 07/10/18 08:21 APTT 45.1 SECONDS (21-34) H 07/10/18 08:21
--- NOTE | 2018-07-13 14:35 | CP.PCM.PN ---
<Clarence Pretty - Last Filed: 07/13/18 14:32> Subjective - Date & Time of Evaluation Date of Evaluation: 07/13/18 Time of Evaluation: 10:45 - Subjective Subjective: PGY2 Cardiology Note for Dr. Barry Delacruz seen and evaluated at bedside this morning. Patient reports no recurrence of chest pain or dyspnea overnight. Patient does complain of low back pain and right ankle pain, which she attributes to prolonged bedrest. Patient has no additional complaints: denies fever, chest pain, palpitations, light headedness, dyspnea, SOB, cough, shooting pain down her lower extremities, bowel habit changes. Objective - Vital Signs/Intake and Output Vital Signs (last 24 hours): Temp Pulse Resp BP Pulse Ox 98.2 F 73 20 125/81 95 07/13/18 08:32 07/13/18 08:32 07/13/18 08:32 07/13/18 09:45 07/13/18 08:32 Intake and Output: 07/13/18 07/13/18 06:59 18:59 Intake Total 120 Output Total 900 Balance -780 - Medications Medications: Current Medications Acetaminophen (Tylenol 325mg Tab) 650 mg PO Q6 PRN PRN Reason: Pain, moderate (4-7) Albuterol Sulfate (Albuterol 0.083% Inhal Freda (2.5 Mg/3 Ml) Ud) 50 mg IH Q6H PRN PRN Reason: Wheezing Amlodipine Besylate (Norvasc) 10 mg PO DAILY [facility] Last Admin: 07/13/18 09:44 Dose: 10 mg Aspirin (Aspirin Chewable) 81 mg PO DAILY [facility] Last Admin: 07/13/18 09:44 Dose: 81 mg Carvedilol (Coreg) 6.25 mg PO DAILY [facility] Last Admin: 07/13/18 09:44 Dose: 6.25 mg Clopidogrel Bisulfate (Plavix) 75 mg PO DAILY [facility] Last Admin: 07/13/18 09:44 Dose: 75 mg Famotidine (Pepcid) 20 mg PO DAILY [facility] Last Admin: 07/13/18 09:44 Dose: 20 mg Fenofibrate (Tricor) 48 mg PO DAILY [facility] Last Admin: 07/13/18 09:44 Dose: 48 mg Furosemide (Lasix) 40 mg IVP Q12 [facility] Last Admin: 05/21/19 09:45 Dose: 40 mg Heparin Sodium (Porcine) (Heparin) 5,000 units SC Q8 [facility] Last Admin: 07/13/18 13:47 Dose: 5,000 units Levothyroxine Sodium (Synthroid) 112 mcg PO 0630 [facility] Last Admin: 07/13/18 06:02 Dose: 112 mcg Lisinopril (Zestril) 5 mg PO DAILY [facility] Last Admin: 07/13/18 09:44 Dose: 5 mg Potassium Chloride (Klor-Con 10) 10 meq PO DAILY [facility] Last Admin: 07/13/18 09:44 Dose: 10 meq - Labs Labs: 07/12/18 07:23 07/12/18 23:55 PT 12.4 SECONDS (9.7-12.2) H 07/10/18 08:21 INR 1.1 07/10/18 08:21 APTT 45.1 SECONDS (21-34) H 07/10/18 08:21 - Constitutional Appears: Non-toxic, No Acute Distress - Head Exam Head Exam: ATRAUMATIC, NORMOCEPHALIC - Eye Exam Eye Exam: Normal appearance - ENT Exam ENT Exam: Mucous Membranes Moist - Neck Exam Neck Exam: absent: Lymphadenopathy, Tenderness - Respiratory Exam Respiratory Exam: Clear to Ausculation Bilateral, NORMAL BREATHING PATTERN. absent: Accessory Muscle Use, Rales, Rhonchi, Wheezes, Respiratory Distress - Cardiovascular Exam Cardiovascular Exam: REGULAR RHYTHM, +S1, +S2 - GI/Abdominal Exam GI & Abdominal Exam: Soft, Normal Bowel Sounds. absent: Distended, Firm, Guarding, Rigid, Tenderness - Extremities Exam Extremities Exam: absent: Calf Tenderness, Pedal Edema - Neurological Exam Neurological Exam: Alert, Awake, Oriented x3 - Psychiatric Exam Psychiatric exam: Normal Affect, Normal Mood - Skin Skin Exam: Dry, Warm Assessment and Plan - Assessment and Plan (Free Text) Plan: Acute on Chronic CHF Exacerbation Echo (07/12/18): * EF 45-50% * LA - increased left atrial pressure and severe dilation * LV- normal thickness, moderately dilated, grade II pseudonormal filling, markedly increased volume index 99mm/m^2 IVC collapses >50% with inspiration * Aortic valve- sclerotic with mild regurg * Mitral valve- thickened with moderate annular calcification and moderate to severe regurg * Tricuspid- moderate regurg, moderate pulmonary HTN and RV systolic pressure of 50mmHg Trop negative x1 Pro-BNP 7,130 (07/10/18) Patient reports resolution of dyspnea Stable from cardiac standpoint for dc Continue current management Iron Deficiency Anemia Management as per Hem/Primary team Case discussed with Dr. Barry Pretty PGY2 <Rayshawn Reddy - Last Filed: 07/13/18 23:41> Objective - Vital Signs/Intake and Output Vital Signs (last 24 hours): Temp Pulse Resp BP Pulse Ox 98.2 F 73 20 125/81 95 07/13/18 08:32 07/13/18 08:32 07/13/18 08:32 07/13/18 09:45 07/13/18 08:32 - Labs Labs: 07/12/18 07:23 07/12/18 23:55 PT 12.4 SECONDS (9.7-12.2) H 07/10/18 08:21 INR 1.1 07/10/18 08:21 APTT 45.1 SECONDS (21-34) H 07/10/18 08:21 Assessment and Plan - Assessment and Plan (Free Text) Plan: Patient seen and evaluated personally by me. Plan of care d/w the medical manager and as documented
--- NOTE | 2018-07-13 15:47 | PCM.HF ---
Heart Failure Core Measure - Heart Failure Ejection Fraction: 40 % or Greater SAMIR Inhibitor Prescribed: Yes Beta-Niurka Prescribed: Carvedilol Angiotensin II Receptor Niurka Prescribed: No Contraindication/Reason for not providing: on samir AnticoagulationTherapy for Atrial Fibrillation/Atrialflutter: No Contraindication/Reason for not providing: no hx of afib Aldosterone Antagonist Prescribed: No Contraindication/Reason for not providing: ef>45 Hydralazine Nitrate Prescribed: No Contraindication/Reason for not providing: ef>45 Implantable Cardioverter Defibrillator Therapy: No Contraindication/Reason for not providing: ef>45 Cardiac Resynchronization Therapy Prescribed: No Contraindication/Reason for not providing: ef>45 - Follow up Will be discharged to: Home Follow Up Date (must be within 7 days from discharge): 07/19/18 Follow Up Time: 14:00
--- NOTE | 2018-07-13 16:55 | CP.PCM.PN ---
Subjective - Date & Time of Evaluation Date of Evaluation: 07/13/18 Time of Evaluation: 11:40 - Subjective Subjective: Patient seen today, states chest pain, resolved , denies any dizziness, palpitations, cough, fever or chills vss and labs reviewed - k- 3.5 and K supplement given Objective - Vital Signs/Intake and Output Vital Signs (last 24 hours): Temp Pulse Resp BP Pulse Ox 98.2 F 73 20 125/81 95 07/13/18 08:32 07/13/18 08:32 07/13/18 08:32 07/13/18 09:45 07/13/18 08:32 Intake and Output: 07/13/18 07/13/18 06:59 18:59 Intake Total 120 Output Total 900 Balance -780 - Medications Medications: Current Medications Acetaminophen (Tylenol 325mg Tab) 650 mg PO Q6 PRN PRN Reason: Pain, moderate (4-7) Albuterol Sulfate (Albuterol 0.083% Inhal Freda (2.5 Mg/3 Ml) Ud) 50 mg IH Q6H PRN PRN Reason: Wheezing Amlodipine Besylate (Norvasc) 10 mg PO DAILY [facility] Last Admin: 07/13/18 09:44 Dose: 10 mg Aspirin (Aspirin Chewable) 81 mg PO DAILY [facility] Last Admin: 07/13/18 09:44 Dose: 81 mg Carvedilol (Coreg) 6.25 mg PO DAILY [facility] Last Admin: 07/13/18 09:44 Dose: 6.25 mg Clopidogrel Bisulfate (Plavix) 75 mg PO DAILY [facility] Last Admin: 07/13/18 09:44 Dose: 75 mg Famotidine (Pepcid) 20 mg PO DAILY [facility] Last Admin: 07/13/18 09:44 Dose: 20 mg Fenofibrate (Tricor) 48 mg PO DAILY [facility] Last Admin: 07/13/18 09:44 Dose: 48 mg Furosemide (Lasix) 40 mg IVP Q12 [facility] Last Admin: 07/13/18 09:45 Dose: 40 mg Heparin Sodium (Porcine) (Heparin) 5,000 units SC Q8 [facility] Last Admin: 07/13/18 13:47 Dose: 5,000 units Levothyroxine Sodium (Synthroid) 112 mcg PO 0630 [facility] Last Admin: 07/13/18 06:02 Dose: 112 mcg Lisinopril (Zestril) 5 mg PO DAILY [facility] Last Admin: 07/13/18 09:44 Dose: 5 mg Potassium Chloride (Klor-Con 10) 10 meq PO DAILY [facility] Last Admin: 07/13/18 09:44 Dose: 10 meq - Labs Labs: 07/12/18 07:23 07/12/18 23:55 PT 12.4 SECONDS (9.7-12.2) H 07/10/18 08:21 INR 1.1 07/10/18 08:21 APTT 45.1 SECONDS (21-34) H 07/10/18 08:21 Assessment and Plan - Assessment and Plan (Free Text) Assessment: A/P CAD, CHF, Gastritis, HTN, Hypothyroidism ADMITTED WITH SOB AND CHEST PAIN troponin x 3 - negative diuresis with lasix and patient clinically improved Echo- done EF 45-50% LA - increased left atrial pressure and severe dilation LV- normal thickness, moderately dilated, grade II pseudonormal filling, markedly increased volume index 99mm/m^2 IVC collapses >50% with inspiration Aortic valve- sclerotic with mild regurg Mitral valve- thickened with moderate annular calcification and moderate to severe regurg Tricuspid- moderate regurg, moderate pulmonary HTN and RV systolic pressure of 50mmHg seen by Dr. Reddy , cleared for discharge from cardiology standpoint D/w Dr. Julien cleared for discharge home today and f/u with Dr. Da pereira 1 week Discharge plan discussed with patient , who understands and agrees with plan [facility] service arranged by JOSE
--- NOTE | 2018-07-15 00:15 | CARD ---
APPROVED REPORT Date of service: 07/10/2018 EKG Measurement Heart [id number] <Conclusion> Normal sinus rhythm Possible Left atrial enlargement Cannot rule out Anterior infarct, age undetermined Abnormal ECG
--- NOTE | 2018-07-16 16:42 | CP.PCM.DIS ---
Provider - Provider Date of Admission: 07/12/18 16:17 Attending physician: Fina Jluien MD Consults: 07/10/18 15:21 Physician Consult Routine Comment: Consulting Provider: Rayshawn Reddy Consulting Physician: Rayshawn Reddy Reason for Consult: CHF exacerbation 07/11/18 11:03 Nephrology Consult Routine Comment: Consulting Provider: Sachin Perez Consulting Physician: Sachin Perez Reason for Consult: Elevated BUN and Creatinine Time Spent in preparation of Discharge (in minutes): 25 Hospital Course - Lab Results Lab Results: Micro Results 07/10/18 12:00 Blood Blood Culture - Final NO GROWTH AFTER 5 DAYS 07/10/18 12:00 Blood Gram Stain - Final TEST NOT PERFORMED 07/10/18 14:45 Blood Blood Culture - Final NO GROWTH AFTER 5 DAYS 07/10/18 14:45 Blood Gram Stain - Final TEST NOT PERFORMED 07/10/18 13:41 Blood Blood Culture - Final NO GROWTH AFTER 5 DAYS 07/10/18 13:41 Blood Gram Stain - Final TEST NOT PERFORMED Most Recent Lab Values WBC 4.3 K/uL (4.8-10.8) L 07/12/18 07:23 RBC 4.28 Mil/uL (3.80-5.20) 07/12/18 07:23 Hgb 12.9 g/dL (11.0-16.0) 07/12/18 07:23 Hct 38.1 % (34.0-47.0) 07/12/18 07:23 MCV 89.1 fL (81.0-99.0) 07/12/18 07:23 MCH 30.1 pg (27.0-31.0) 07/12/18 07:23 MCHC 33.8 g/dL (33.0-37.0) 07/12/18 07:23 RDW 14.3 % (11.5-14.5) 07/12/18 07:23 Plt Count 150 K/uL (130-400) 07/12/18 07:23 MPV 9.1 fL (7.2-11.7) 07/12/18 07:23 Neut % (Auto) 49.2 % (50.0-75.0) L 07/10/18 08:21 Lymph % (Auto) 35.6 % (20.0-40.0) 07/10/18 08:21 [place] % (Auto) 11.4 % (0.0-10.0) H 07/10/18 08:21 Eos % (Auto) 2.5 % (0.0-4.0) 07/10/18 08:21 Baso % (Auto) 1.3 % (0.0-2.0) 07/10/18 08:21 Neut # (Auto) 2.0 K/uL (1.8-7.0) 07/10/18 08:21 Lymph # (Auto) 1.4 K/uL (1.0-4.3) 07/10/18 08:21 [place] # (Auto) 0.5 K/uL (0.0-0.8) 07/10/18 08:21 Eos # (Auto) 0.1 K/uL (0.0-0.7) 07/10/18 08:21 Baso # (Auto) 0.1 K/uL (0.0-0.2) 07/10/18 08:21 PT 12.4 SECONDS (9.7-12.2) H 07/10/18 08:21 INR 1.1 07/10/18 08:21 APTT 45.1 SECONDS (21-34) H 07/10/18 08:21 Sodium 138 mmol/L (132-148) 07/12/18 23:55 Potassium 3.5 mmol/L (3.6-5.2) L 07/12/18 23:55 Chloride 95 mmol/L (98-107) L 07/12/18 23:55 Carbon Dioxide 33 mmol/L (22-30) H 07/12/18 23:55 Anion Gap 13 (10-20) 07/12/18 23:55 BUN 26 mg/dL (7-17) H 07/12/18 23:55 Creatinine 1.3 mg/dL (0.7-1.2) H 07/12/18 23:55 Est GFR ( Amer) 47 07/12/18 23:55 Est GFR (Non-Af Amer) 39 07/12/18 23:55 Random Glucose 137 mg/dL (65-105) H D 07/12/18 23:55 Calcium 9.1 mg/dl (8.6-10.4) 07/12/18 23:55 Magnesium 2.1 mg/dL (1.6-2.3) 07/13/18 06:35 Total Bilirubin 0.7 mg/dL (0.2-1.3) 07/10/18 08:21 AST 40 U/L (14-36) H 07/10/18 08:21 ALT 32 U/L (9-52) 07/10/18 08:21 Alkaline Phosphatase 57 U/L (38-126) 07/10/18 08:21 Total Creatine Kinase 65 U/L (30-135) 07/10/18 08:21 CK-MB (Mass) 1.22 ng/mL (0.0-3.38) 07/10/18 08:21 Troponin I < 0.0120 ng/mL (0.00-0.120) 07/10/18 08:21 NT-Pro-B Natriuret Pep 7130 pg/mL (0-900) H 07/10/18 08:21 Total Protein 6.9 g/dL (6.3-8.3) 07/10/18 08:21 Albumin 4.0 g/dL (3.5-5.0) 07/10/18 08:21 Globulin 2.8 gm/dL (2.2-3.9) 07/10/18 08:21 Albumin/Globulin Ratio 1.4 (1.0-2.1) 07/10/18 08:21 Urine Color Straw (YELLOW) 07/11/18 13:20 Urine Clarity Clear (Clear) 07/11/18 13:20 Urine pH 7.0 (5.0-8.0) 07/11/18 13:20 Ur Specific [place] 1.006 (1.003-1.030) 07/11/18 13:20 Urine Protein Negative mg/dL (NEGATIVE) 07/11/18 13:20 Urine Glucose (UA) Normal mg/dL (Normal) 07/11/18 13:20 Urine Ketones Negative mg/dL (NEGATIVE) 07/11/18 13:20 Urine Blood Negative (NEGATIVE) 07/11/18 13:20 Urine Nitrate Negative (NEGATIVE) 07/11/18 13:20 Urine Bilirubin Negative (NEGATIVE) 07/11/18 13:20 Urine Urobilinogen Normal mg/dL (0.2-1.0) 07/11/18 13:20 Ur Leukocyte Esterase 1+ Radha/uL (Negative) H 07/11/18 13:20 Urine WBC (Auto) 3 /hpf (0-5) 07/11/18 13:20 Urine RBC (Auto) < 1 /hpf (0-3) 07/11/18 13:20 Ur Squamous Epith Cells 1 /hpf (0-5) 07/11/18 13:20 U Random Total Protein 12.0 mg/dL (0.0-12.0) 07/11/18 13:27 - Hospital Course Hospital Course: 83-year-old female who presented with progressively worsening dyspnea and cough. Patient was found to be fluid overloaded. Patient was also found to have acute kidney injury for which she was evaluated by nephrology. Patient was diuresed and treated with improvement in symptoms. Patient is being discharged home to be followed by PMD and nephrology. Discharge Exam - Head Exam Head Exam: ATRAUMATIC, NORMOCEPHALIC Discharge Plan - Discharge Medications Prescriptions: Albuterol 0.083% [Albuterol 0.083% Inhal Freda (2.5 mg/3 ml) UD] 60 ml IH Q6H PRN 30 Days neb PRN Reason: Wheezing Potassium Chloride [Klor-Con 10] 10 meq PO DAILY #30 ter Furosemide [Lasix] 20 mg PO Q12H #60 tab Levofloxacin [Levaquin] 500 mg PO DAILY #5 tablet Lisinopril [Zestril] 5 mg PO DAILY #30 tab - Follow Up Plan Condition: GOOD Disposition: HOME/ ROUTINE Instructions: Heart Healthy Diet, Heart Failure, Adult (DC), Levofloxacin (Systemic), Albuterol, Furosemide, Lisinopril, Potassium Chloride Additional Instructions: Please follow up with Dr. Menendez office in 1 week Please continue medication as per med. rec. Referrals: Fina Julien MD [Staff Provider] -
--- NOTE | 2018-07-20 23:31 | PQF ---
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 Please document the type and acuity (in cludes probable or suspected) Such as: Type: -- Systolic -- Diastolic -- Combined -- Other, please specify Acuity: -- Acute -- Chronic -- Acute on chronic -- Other, please specify Also please document the underlying cause of the CHF (includes probable or suspected) The patient's Clinical Indicators include: 82 year old female presents to the ED with SOB intermittently for the past 2 months. History of CAD, Gastritits, Hypothyroidism, CKD,/ CHF/HTN. found to be in ARF. Please specify the type of CHF Query created by: Kiersten Bella on 07/14/2018 12:43 PM Electronically signed by: Fina Julien MD 07/20/2018 11:27 PM
== END 2018-07-13 17:00 | disposition home or self-care (01) | DRG 682 ==
LOC: C.ER 07:43 → C.9E 11:11 → C.6T 11:41 → C.9E 16:17 → OBSVTOIN 07-12 16:17
PROVIDERS: ADMIT Internal Medicine Critical Care Medicine; ATTEND Internal Medicine Critical Care Medicine
DX: N17.9 Acute kidney failure, unspecified (principal); I50.23 Acute on chronic systolic (congestive) heart failure; I13.0 Hypertensive heart and chronic kidney disease with heart failure and stage 1 through stage 4 chronic kidney disease, or unspecified chronic kidney disease; E87.3 Alkalosis; I25.10 Atherosclerotic heart disease of native coronary artery without angina pectoris; N18.3 Chronic kidney disease, stage 3 (moderate); Z95.5 Presence of coronary angioplasty implant and graft; I27.20 Pulmonary hypertension, unspecified; J45.909 Unspecified asthma, uncomplicated; E03.9 Hypothyroidism, unspecified; K75.9 Inflammatory liver disease, unspecified; E78.5 Hyperlipidemia, unspecified; N28.1 Cyst of kidney, acquired; D50.9 Iron deficiency anemia, unspecified